=== PATIENT | female | born 1975 | race Two or more races ===

== ENCOUNTER 2022-07-03 12:02 | Emergency (ER) | payer OTHER ==
[2022-07-03 12:58] VITALS: BMI 19.2
[2022-07-03] MEDS ORDERED: NITROGLYCERIN SUBLINGUAL 1/200 0.3 MG BTL SL ONE (13:27)
[2022-07-03] MEDS ORDERED: ASPIRIN 81 MG CHEWABLE TABLETS PO ONE (13:28)
[2022-07-03] MEDS ORDERED: NITROGLYCERIN SUBLINGUAL 1/150 0.4 MG TAB ONE ×2 (13:37→13:41)
[2022-07-03] MEDS ORDERED: ASPIRIN 81 MG CHEWABLE TABLETS ONE (13:37)
[2022-07-03] MEDS ORDERED: ACETAMINOPHEN INJECTION 100 ML IVPB ONE (13:55)
[2022-07-03] MEDS ORDERED: KETOROLAC TROMETHAMINE 15 MG/ML VIAL IVPUSH ONE (14:28)
[2022-07-03] MEDS ORDERED: amLODIPine BESYLATE 10 MG TABLET (FP) PO ONE (14:28)
[2022-07-03 14:41] LABS: BASO % 1.3 % (0-2.0); EOS % 0.5 % (0-4.5); HEMATOCRIT 35.7 % (32.4-45.2); HEMOGLOBIN 11.5 GM/dL (10.7-15.3); LYMPH % 24.4 % (8-40); MCH 26.7 pg (25.7-33.7); MCHC 32.1 g/dl (32.0-36.0); MEAN CELL VOLUME 83.3 fl (80-96); MEAN PLT VOLUME 9.7 fl (7.5-11.1); MONO % 6.4 % (3.8-10.2); NEUT % 67.4 % (42.8-82.8); PLATELET COUNT 343 10^3/uL (134-434); RBC 4.29 M/mm3 (3.60-5.2); RDW 16.9 % (11.6-15.6); WHITE BLOOD COUNT 9.4 K/mm3 (4.0-10.0)
[2022-07-03 14:56] VITALS: PULSE 85
[2022-07-03 14:59] LABS: CALCIUM 8.9 mg/dL (8.5-10.1)
[2022-07-03 15:00] LABS: ALBUMIN 3.6 g/dl (3.4-5.0); BLOOD UREA NITROGEN 15.3 mg/dL (7-18)
[2022-07-03] MEDS ORDERED: amLODIPine BESYLATE 10 MG TABLET (FP) ONE ×2 (15:00→15:04)
[2022-07-03 15:03] LABS: CREATININE 0.7 mg/dL (0.55-1.3)
[2022-07-03 15:04] LABS: BILIRUBIN,TOTAL 0.2 mg/dL (0.2-1)
[2022-07-03 15:05] LABS: TOT PROT 7.2 g/dl (6.4-8.2)
[2022-07-03 19:14] VITALS: BP 177/110; RESP 24; TEMP 98.2
[2022-07-03] MEDS ORDERED: LIDOCAINE 5% TOPICAL PATCH TP ONE (19:34)
[2022-07-03] MEDS ORDERED: LIDOCAINE 5% TOPICAL PATCH ONE (19:55)
[2022-07-03 20:43] LABS: INR 1.02 (0.83-1.09); PROTHROMBIN TIME (PATIENT) 11.7 SEC (9.7-13.0)
[2022-07-03 20:46] LABS: ACTIVATED PTT 31.7 SECONDS (25.2-36.5)
[2022-07-03] MEDS ORDERED: LIDOCAINE PATCH REMOVAL MC SCH (22:00)
== END 2022-07-03 22:11 | disposition home or self-care (01) ==
LOC: JER 12:02
DX: R20.2 Paresthesia of skin (principal)
CPT/HCPCS: 0241U-QW; 36415; 70450-TC; 71046-TC-FY; 71275-TC; 74174-TC; 80053; 84484; 84703; 85025; 85610; 85730; 93005; 93010; 99285-25

== ENCOUNTER 2023-09-03 11:35 | Emergency (ER) | payer OTHER ==
[2023-09-03 11:40] VITALS: BMI 19.5
[2023-09-03] MEDS ORDERED: ACETAMINOPHEN 1000 MG/100 ML BAG IVPB ONE (12:24)
[2023-09-03] MEDS ORDERED: SODIUM CHLORIDE 0.9% 500 ML INFUS.BAG IV ONE (12:24)
[2023-09-03] MEDS ORDERED: ACETAMINOPHEN INJECTION 100 ML IVPB ONE (12:29)
[2023-09-03 12:51] LABS: BASO % 1.1 % (0-2.0); EOS % 0.2 % (0-4.5); HEMATOCRIT 30.9 % (32.4-45.2); HEMOGLOBIN 9.6 GM/dL (10.7-15.3); LYMPH % 19.1 % (8-40); MCH 21.5 pg (25.7-33.7); MCHC 30.9 g/dl (32.0-36.0); MEAN CELL VOLUME 69.6 fl (80-96); MONO % 7.2 % (3.8-10.2); NEUT % 72.4 % (42.8-82.8); PLATELET COUNT 332 10^3/uL (134-434); RBC 4.44 M/mm3 (3.60-5.2); RDW 19.7 % (11.6-15.6); WHITE BLOOD COUNT 9.7 K/mm3 (4.0-10.0)
[2023-09-03 12:51] LABS: URINE APPEARANCE CLEAR; URINE BILIRUBIN NEGATIVE (NEGATIVE); URINE COLOR YELLOW; URINE GLUCOSE (UA) NEGATIVE (NEGATIVE); URINE KETONE NEGATIVE (NEGATIVE); URINE LEUK ESTERASE NEGATIVE (NEGATIVE); URINE NITRITE NEGATIVE (NEGATIVE); URINE PROTEIN NEGATIVE (NEGATIVE); URINE UROBILINOGEN 0.2 mg/dL (0.2-1.0)
[2023-09-03 13:07] LABS: POTASSIUM 3.9 mmol/L (3.5-5.1)
[2023-09-03 13:08] LABS: CALCIUM 8.9 mg/dL (8.5-10.1)
[2023-09-03 13:09] LABS: ALBUMIN 4.2 g/dl (3.4-5.0)
[2023-09-03 13:12] LABS: CREATININE 0.7 mg/dL (0.55-1.3)
[2023-09-03 13:13] LABS: BILIRUBIN,TOTAL 0.2 mg/dL (0.2-1); TOT PROT 7.9 g/dl (6.4-8.2)
[2023-09-03 13:29] LABS: ANISOCYTOSIS 1+; MACROCYTOSIS 0
[2023-09-03 14:57] VITALS: BP 163/100; PULSE 85; RESP 18; TEMP 98.5
== END 2023-09-03 15:12 | disposition home or self-care (01) ==
LOC: JER 11:35
PROC: 3E033NZ Introduction of Analgesics, Hypnotics, Sedatives into Peripheral Vein, Percutaneous Approach (ICD-10-PCS; principal; 2023-09-03)
DX: I10 Essential (primary) hypertension (principal); R11.0 Nausea; R07.9 Chest pain, unspecified; R51.9 Headache, unspecified; Z20.822 Contact with and (suspected) exposure to COVID-19
CPT/HCPCS: 0241U-QW; 36415; 71046-TC-FY; 80053; 81003; 84484; 84703; 85025; 93005; 93010; 99285-25; J0131

== ENCOUNTER 2024-02-16 13:49 | Inpatient (IN) | payer OTHER ==
[2024-02-16 13:57] VITALS: BMI 18.4
[2024-02-16] MEDS ORDERED: ACETAMINOPHEN INJECTION 100 ML IVPB ONE (15:10)
[2024-02-16] MEDS: ALBUTEROL SO4 2.5/IPRATROPIUM 0.5 INH SOL 3 ML VIAL.NEB. NEB SCH (15:15)
[2024-02-16] MEDS: ACETAMINOPHEN 1000 MG/100 ML BAG IVPB ONE (15:25)
[2024-02-16] MEDS: LACTATED RINGERS SOLUTION 1000 ML INFUS.BAG IV ONE (15:25)
[2024-02-16 15:35] LABS: BASO % 1.9 % (0-2.0); EOS % 0.4 % (0-4.5); HEMATOCRIT 31.9 % (32.4-45.2); LYMPH % 30.8 % (8-40); MCH 21.1 pg (25.7-33.7); MCHC 31.3 g/dl (32.0-36.0); MEAN CELL VOLUME 67.4 fl (80-96); MEAN PLT VOLUME 8.1 fl (7.5-11.1); MONO % 5.7 % (3.8-10.2); NEUT % 61.2 % (42.8-82.8); PLATELET COUNT 439 10^3/uL (134-434); RBC 4.74 M/mm3 (3.60-5.2); RDW 19.7 % (11.6-15.6); WHITE BLOOD COUNT 8.3 K/mm3 (4.0-10.0)
[2024-02-16 15:41] LABS: INR 1.1 (0.83-1.09); PROTHROMBIN TIME (PATIENT) 12.4 SEC (9.7-13.0)
[2024-02-16 15:44] LABS: ACTIVATED PTT 36.1 SECONDS (25.2-36.5)
[2024-02-16 15:53] LABS: ANISOCYTOSIS 3+; MACROCYTOSIS 0
[2024-02-16 16:01] LABS: BLOOD UREA NITROGEN 11.9 mg/dL (7-18); CALCIUM 9.4 mg/dL (8.5-10.1)
[2024-02-16 16:02] LABS: ALBUMIN 3.9 g/dl (3.4-5.0)
[2024-02-16 16:05] LABS: CREATININE 0.8 mg/dL (0.55-1.3)
[2024-02-16 16:06] LABS: BILIRUBIN,TOTAL 0.3 mg/dL (0.2-1); TOT PROT 7.4 g/dl (6.4-8.2)
[2024-02-16] MEDS ORDERED: KETOROLAC TROMETHAMINE 15 MG/ML VIAL ONE (17:26)
[2024-02-16] MEDS: KETOROLAC TROMETHAMINE 15 MG/ML VIAL IVPUSH ONE (17:30)
[2024-02-16] MEDS ORDERED: SODIUM CHLORIDE 500 ML IV STA (23:00)
[2024-02-16] MEDS ORDERED: hydrALAZINE HCL 20 MG/ML VIAL IVPUSH ONE (23:20)
[2024-02-16] MEDS ORDERED: LISINOPRIL 20 MG TABLET PO ONE (23:20)
[2024-02-17 07:44] LABS: BASO % 2.4 % (0-2.0); EOS % 1.6 % (0-4.5); HEMATOCRIT 29.3 % (32.4-45.2); HEMOGLOBIN 9.1 GM/dL (10.7-15.3); LYMPH % 34.6 % (8-40); MCH 21.5 pg (25.7-33.7); MCHC 31.1 g/dl (32.0-36.0); MEAN PLT VOLUME 8.7 fl (7.5-11.1); MONO % 8.8 % (3.8-10.2); NEUT % 52.6 % (42.8-82.8); PLATELET COUNT 362 10^3/uL (134-434); RBC 4.24 M/mm3 (3.60-5.2); RDW 19.6 % (11.6-15.6); WHITE BLOOD COUNT 7.2 K/mm3 (4.0-10.0)
[2024-02-17 07:59] LABS: POTASSIUM 4.1 mmol/L (3.5-5.1)
[2024-02-17 08:01] LABS: CALCIUM 8.6 mg/dL (8.5-10.1)
[2024-02-17 08:03] LABS: ALBUMIN 3.4 g/dl (3.4-5.0); BLOOD UREA NITROGEN 12.2 mg/dL (7-18)
[2024-02-17 08:06] LABS: CREATININE 0.7 mg/dL (0.55-1.3)
[2024-02-17 08:07] LABS: BILIRUBIN,TOTAL 0.4 mg/dL (0.2-1); TOT PROT 6.8 g/dl (6.4-8.2)
[2024-02-17] MEDS: MECLIZINE HCL 12.5 MG TABLET PO PRN (09:40)
[2024-02-17] MEDS: ENOXAPARIN NA (PORCINE) 40 MG/0.4 ML DISP.SYRIN SQ SCH (09:40)
[2024-02-17] MEDS: HYDROCHLOROTHIAZIDE 12.5 MG CAPSULE (FP) PO SCH (09:40)
[2024-02-17] MEDS: ALBUTEROL SO4 2.5/IPRATROPIUM 0.5 INH SOL 3 ML VIAL.NEB. NEB SCH ×2 (09:52→15:00)
[2024-02-17] MEDS: hydrALAZINE HCL 10 MG TABLET PO PRN (10:31)
[2024-02-17] MEDS: LOSARTAN POTASSIUM 50 MG TABLET PO SCH ×2 (10:32→22:44)
[2024-02-17 11:42] LABS: COCAINE, UR NEGATIVE (NEGATIVE); METHADONE, UR NEGATIVE (NEGATIVE); OPIATES, URI NEGATIVE (NEGATIVE); PHENCYCLIDINE,URINE NEGATIVE (NEGATIVE); URINE AMPHETAMINES NEGATIVE (NEGATIVE); URINE BARBITURATES NEGATIVE (NEGATIVE); URINE BENZODIAZEPINES NEGATIVE (NEGATIVE)
[2024-02-17] MEDS: hydrALAZINE HCL 50 MG TABLET (FP) PO ONE (17:22)
[2024-02-17] MEDS: LORazepam 1 MG TABLET PO PRN (17:41)
[2024-02-17] MEDS: ALBUTEROL SO4 2.5/IPRATROPIUM 0.5 INH SOL 3 ML VIAL.NEB. NEB PRN (20:02)
[2024-02-17] MEDS ORDERED: ATORVASTATIN CA 40 MG TABLET (FP) PO SCH (22:00)
[2024-02-17] MEDS: ATORVASTATIN CA 20 MG TABLET (FP) PO SCH (22:44)
[2024-02-18 07:12] LABS: BASO % 2.7 % (0-2.0); EOS % 1.6 % (0-4.5); HEMOGLOBIN 10.2 GM/dL (10.7-15.3); LYMPH % 34.5 % (8-40); MCH 21.5 pg (25.7-33.7); MEAN CELL VOLUME 69.1 fl (80-96); MEAN PLT VOLUME 8.8 fl (7.5-11.1); MONO % 9.5 % (3.8-10.2); NEUT % 51.7 % (42.8-82.8); PLATELET COUNT 377 10^3/uL (134-434); RBC 4.77 M/mm3 (3.60-5.2); RDW 20.1 % (11.6-15.6); WHITE BLOOD COUNT 6.4 K/mm3 (4.0-10.0)
[2024-02-18 07:20] LABS: POTASSIUM 4.1 mmol/L (3.5-5.1)
[2024-02-18 07:23] LABS: BLOOD UREA NITROGEN 12.2 mg/dL (7-18)
[2024-02-18 07:25] LABS: CALCIUM 9.4 mg/dL (8.5-10.1)
[2024-02-18 07:26] LABS: CREATININE 0.7 mg/dL (0.55-1.3)
[2024-02-18] MEDS: IRON SUCROSE INJECTION 200 MG in SODIUM CHLORIDE 100 ML IVPB ONE (09:08)
[2024-02-18 09:45] VITALS: RESP 18
[2024-02-18] MEDS: amLODIPine BESYLATE 5 MG TABLET (FP) PO SCH (16:21)
[2024-02-18] MEDS: ACETAMINOPHEN 325 MG TABLET (FP) PO PRN (18:44)
[2024-02-19 06:35] LABS: BASO % 2.1 % (0-2.0); EOS % 1.7 % (0-4.5); MCH 21.2 pg (25.7-33.7); MCHC 30.6 g/dl (32.0-36.0); MEAN CELL VOLUME 69.3 fl (80-96); MEAN PLT VOLUME 8.6 fl (7.5-11.1); MONO % 9.6 % (3.8-10.2); NEUT % 60.6 % (42.8-82.8); PLATELET COUNT 372 10^3/uL (134-434); RDW 19.6 % (11.6-15.6); WHITE BLOOD COUNT 7.4 K/mm3 (4.0-10.0)
[2024-02-19 06:55] LABS: POTASSIUM 4.1 mmol/L (3.5-5.1)
[2024-02-19 06:57] LABS: BLOOD UREA NITROGEN 17.6 mg/dL (7-18); CALCIUM 9.7 mg/dL (8.5-10.1); MAGNESIUM 2.1 mg/dL (1.8-2.4)
[2024-02-19 07:00] LABS: CREATININE 0.8 mg/dL (0.55-1.3)
[2024-02-19] MEDS: methylPREDNISolone NA SUCC 40 MG/1 ML VIAL IVPUSH SCH (13:00)
[2024-02-19] MEDS: ATORVASTATIN CA 20 MG TABLET (FP) PO SCH (21:02)
[2024-02-20] MEDS: MECLIZINE HCL 12.5 MG TABLET PO PRN (21:17)
[2024-02-22 09:24] LABS: BASO % 1.3 % (0-2.0); EOS % 0.9 % (0-4.5); HEMATOCRIT 34.2 % (32.4-45.2); HEMOGLOBIN 10.7 GM/dL (10.7-15.3); LYMPH % 30.8 % (8-40); MCH 21.6 pg (25.7-33.7); MCHC 31.4 g/dl (32.0-36.0); MEAN CELL VOLUME 68.9 fl (80-96); MEAN PLT VOLUME 9.2 fl (7.5-11.1); MONO % 9.1 % (3.8-10.2); NEUT % 57.9 % (42.8-82.8); PLATELET COUNT 340 10^3/uL (134-434); RBC 4.97 M/mm3 (3.60-5.2); RDW 19.8 % (11.6-15.6); WHITE BLOOD COUNT 9.1 K/mm3 (4.0-10.0)
[2024-02-22 09:47] LABS: POTASSIUM 4.3 mmol/L (3.5-5.1)
[2024-02-22 09:51] LABS: ALBUMIN 3.8 g/dl (3.4-5.0); BLOOD UREA NITROGEN 25.5 mg/dL (7-18); CALCIUM 9.2 mg/dL (8.5-10.1)
[2024-02-22 09:54] LABS: CREATININE 0.7 mg/dL (0.55-1.3)
[2024-02-22 09:56] LABS: BILIRUBIN,TOTAL 0.3 mg/dL (0.2-1); TOT PROT 7.3 g/dl (6.4-8.2)
[2024-02-22 10:22] LABS: ANISOCYTOSIS 1+; MACROCYTOSIS 0
[2024-02-22 13:36] VITALS: BP 124/82; PULSE 79; TEMP 98.6
== END 2024-02-22 18:00 | disposition home or self-care (01) | DRG 204 ==
LOC: JER 13:49 → JERBED 19:17 → J4S 23:24 → OBSVTOIN 02-22 07:22
PROVIDERS: ADMIT Internal Medicine; ATTEND Internal Medicine
DX: R55 Syncope and collapse (principal); I10 Essential (primary) hypertension; J44.9 Chronic obstructive pulmonary disease, unspecified; E78.5 Hyperlipidemia, unspecified; I16.0 Hypertensive urgency; N92.0 Excessive and frequent menstruation with regular cycle; H53.8 Other visual disturbances; F12.10 Cannabis abuse, uncomplicated; J45.909 Unspecified asthma, uncomplicated; I65.21 Occlusion and stenosis of right carotid artery; F17.210 Nicotine dependence, cigarettes, uncomplicated; D50.9 Iron deficiency anemia, unspecified; R07.89 Other chest pain; E44.0 Moderate protein-calorie malnutrition; Z68.1 Body mass index [BMI] 19.9 or less, adult; Z91.148 Patient's other noncompliance with medication regimen for other reason
CPT/HCPCS: 0241U-QW; 36415; 70450-TC; 70496-TC; 70498-TC; 70551-TC; 71045-TC-FY; 80048; 80053; 80061; 80307; 82550; 82607; 82728; 82746; 82962; 83036; 83540; 83550; 83735; 84439; 84443; 84484; 84703; 85025; 85379; 85610; 85730; 93005; 93010; 93306-TC; 93351; 93880-TC; 94640; 97116-GP; 97161-GP; 99285-25; G0378; J0131; J1756